=== PATIENT | female | born 1995 | race African-American/Black ===

== ENCOUNTER 2018-11-24 19:17 | Day surgery (SDC) | payer OTHER ==
[2018-11-24 19:55] VITALS: BP 110/64; TEMP 98.8; BMI 25.7
[2018-11-24 21:02] LABS: Bilirubin Negative (Negative); Blood, Urine Negative (Negative); Clarity CLEAR (Clear); Glucose, Urine (Dipstick) Negative (Negative); Leukocyte Negative (Negative); Nitrite Negative (Negative); Protein, Urine (Dipstick) Negative (Neg-Trace); Specific Gravity, Urine 1.009 (1.002-1.036)
--- NOTE | 2018-11-24 22:20 | SS ---
DATE OF ADMISSION: 11/24/2018 DATE OF DISCHARGE: 11/24/2018 LABOR AND DELIVERY TRIAGE NOTE REGULAR PHYSICIAN: Siena Watts MD. EVALUATING PHYSICIAN: Murtaza Hinson MD. CHIEF COMPLAINT: Lower abdominal pain noticed while working today. HISTORY OF PRESENT ILLNESS: Ms. Ríos is a 23-year-old black, G2, P1-0-0-1 with an estimated date of confinement of 12/27/2018, who presents complaining of diffuse lower abdominal discomfort with pulling that she says extends into her groin and hips. She denies vaginal bleeding or ruptured membranes. She reports active movement. Her care has been with Dr. Siena Watts and has been without complications. PAST OBSTETRICAL HISTORY: One vaginal delivery of a 7-pound 11-ounce infant. PAST MEDICAL HISTORY: None. PAST SURGICAL HISTORY: Appendectomy. CURRENT MEDICATIONS: 1. vitamins. 2. Iron. ALLERGIES: NO KNOWN ALLERGIES. SOCIAL HISTORY: Denies tobacco, alcohol, or drug use. FAMILY HISTORY: Unremarkable. REVIEW OF SYSTEMS: Denies nausea, vomiting, fever, chills, ruptured membranes, or vaginal bleeding. PHYSICAL EXAMINATION: VITAL SIGNS: Stable. She is afebrile in triage. GENERAL: She is pleasant and in no acute distress. ABDOMEN: Soft, nontender, and gravid. PELVIC: Deferred. heart tones are stable and are reassuring. There are no decelerations. No uterine contractions are seen. LABORATORY DATA: Urinalysis shows specific gravity of 1.009 with negative leukocytes, negative nitrites, negative protein, negative glucose, and negative ketones. ASSESSMENT: 1. 35-1/2 week uterine . 2. Suspect round ligament pain. PLAN: The nature round ligament pain was discussed with her in detail. She was told to use Tylenol at home. Complete labor precautions were given. She states that she has a followup appointment with Dr. Watts next week. Job ID: [id number]
== END 2018-11-24 21:45 | disposition home or self-care (01) ==
LOC: L&D/OP 19:17
PROVIDERS: ATTEND Obstetrics & Gynecology
DX: O99.89 Other specified diseases and conditions complicating pregnancy, childbirth and the puerperium (principal); R10.30 Lower abdominal pain, unspecified; Z3A.35 35 weeks gestation of pregnancy; Z90.49 Acquired absence of other specified parts of digestive tract
CPT/HCPCS: 81003; 99283

== ENCOUNTER 2018-12-20 00:05 | Inpatient (IN) | payer OTHER ==
[~2018-12-20 00:05] MED LIST: Butorphanol Tartrate 1 MG/ML VIAL SLOW IVP PRN; Docusate 100 MG CAP PO PRN; HYDROcodone/Acetaminophen 5/325 mg Tablet PO PRN; Ibuprofen 800 MG TAB PO PRN; Lidocaine 1% (PF) 30 ML VIAL SC PRN; NS / Oxytocin 40 units/1000ml 1,000 ML IV PRN; NS w/ Oxytocin 10 units 500 ML IV SCH; Ondansetron PF 4 MG/2 ML Vial IVP PRN; Promethazine HCl 25 MG/ML VIAL IM PRN
[2018-12-20 06:17] VITALS: BMI 26.9
[2018-12-20 06:44] LABS: Hemoglobin 10.6 g/dL (12.0-16.0); Mean Corpuscular HGB CONC 33.1 g/dL (32.0-36.0); Mean Corpuscular Hemoglobin 31.5 pg (27.0-31.0); Mean Corpuscular Volume 95.1 fL (78.0-98.0); Mean Platelet Volume 7.2 fL (7.4-10.4); Platelet Count 311 thou/uL (130-400); RBC Distribution Width 15.2 % (11.5-14.5); Red Blood Cell (RBC) Count 3.36 mill/uL (4.20-5.40); White Blood Cell (WBC) Count 12.3 thou/uL (4.8-10.8)
[2018-12-20] MEDS: Lactated Ringer's 1,000 ML IV SCH ×2 (06:46→14:53)
[2018-12-20 07:28] LABS: HBSAg Index 0.26 S/CO (0-0.99); Hep B Surf Ag Non-Reactive S/CO (NonReactive); Syphilis Antibody Nonreactive (Nonreactive); Syphilis Antibody Index 0.03 S/CO (<1.00 Non-Reactive)
[2018-12-20] MEDS ORDERED: Bupivacaine/Epinephrine 0.25% 30 ML VIAL ONE (11:11)
[2018-12-20] MEDS ORDERED: Fentanyl 4 mcg/Bup 0.1% Cadd 100 ML ONE (14:12)
[2018-12-20] MEDS ORDERED: Lidocaine 1.5%/Epinephrine 1:200,000 5 ML AMPUL IJ ONE (14:12)
[2018-12-20] MEDS ORDERED: Eucerin (Mineral Oil/Petrolatum,White) 30 gm Jar TOP PRN (14:47)
[2018-12-20] MEDS ORDERED: ePHEDrine/0.9% NaCl/PF SYRINGE 50 mg/10 ml SLOW IVP PRN (14:47)
[2018-12-20] MEDS ORDERED: Ondansetron PF 4 MG/2 ML Vial IVP PRN ×2 (14:47→18:20)
[2018-12-20] MEDS ORDERED: diphenhydrAMINE 50 MG/ML VIAL IVP PRN (14:47)
[2018-12-20] MEDS ORDERED: Acetaminophen 325 MG TAB PO PRN (14:47)
[2018-12-20] MEDS ORDERED: Promethazine HCl 25 MG/ML VIAL IM PRN (14:47)
[2018-12-20] MEDS ORDERED: Lactated Ringer's 500 ML IV PRN (14:47)
[2018-12-20] MEDS ORDERED: Naloxone HCl 0.4 mg/ml Vial IVP PRN ×2 (14:47)
[2018-12-20] MEDS ORDERED: Fentanyl 4 mcg/Bupivacaine 0.1% Cassette 100 ML EPIDURAL SCH (15:00)
[2018-12-20] MEDS ORDERED: Communication Order-Pharmacy FS SCH (15:00)
[2018-12-20] MEDS ORDERED: Milk Of Magnesia 30 ML UDCUP PO PRN (18:20)
[2018-12-20] MEDS ORDERED: Benzocaine/Menthol 20-0.5% 60 ML CAN TOP PRN (18:20)
[2018-12-20] MEDS ORDERED: Adacel (T-DAP) 0.5 ML SYRINGE IM ONE (18:20)
[2018-12-20] MEDS ORDERED: HYDROcodone/Acetaminophen 5/325 mg Tablet PO PRN ×2 (18:20)
[2018-12-20] MEDS ORDERED: Lanolin Ointment 7 GM TUBE TOP PRN (18:20)
[2018-12-20] MEDS ORDERED: Bisacodyl 10 MG SUPP PR PRN (18:20)
[2018-12-20] MEDS ORDERED: NS / Oxytocin 40 units/1000ml 1,000 ML IV SCH (18:30)
[2018-12-21] MEDS: Lactated Ringer's 1,000 ML IV SCH (06:50)
[2018-12-21] MEDS: Ferrous Sulfate 325 MG TAB PO SCH ×2 (08:27→18:18)
[2018-12-21] MEDS: Ibuprofen 800 MG TAB PO SCH ×4 (08:58→21:51)
[2018-12-21] MEDS: Prenatal Vitamin 1 TAB PO SCH (08:58)
[2018-12-21] MEDS: Docusate Calcium (SURFAK) 240 MG CAP PO SCH ×3 (08:58→21:51)
[2018-12-22] MEDS: Ibuprofen 800 MG TAB PO SCH ×2 (06:20→14:02)
[2018-12-22 09:07] VITALS: BP 111/65; TEMP 98.1
[2018-12-22] MEDS: Ferrous Sulfate 325 MG TAB PO SCH (09:33)
[2018-12-22] MEDS: Prenatal Vitamin 1 TAB PO SCH (09:47)
[2018-12-22] MEDS: Docusate Calcium (SURFAK) 240 MG CAP PO SCH (09:47)
--- NOTE | 2018-12-22 21:36 | DN ---
DATE OF PROCEDURE: 12/20/2018 ADMITTING DIAGNOSES: 1. A 23-year-old female, G2, P1, at 39 weeks for induction of labor. 2. History of fourth degree laceration with last delivery. 3. Group B streptococcus negative. POSTOPERATIVE DIAGNOSES: 1. A 23-year-old female, G2, P1, at 39 weeks for induction of labor. 2. History of fourth degree laceration with last delivery. 3. Group B streptococcus negative. 4. Live-born female weighing 7 pounds 1 ounce with Apgars of 9 and 9 at 1 and 5 minutes respectively. 5. Revision of a band from her previous fourth degree repair with the last . ESTIMATED BLOOD LOSS: 50 mL. ANESTHESIA: Epidural. CLINICAL HISTORY: This patient is a 23-year-old female, G2, P1 , with a previous term vaginal delivery, who was seen at [facility] and followed throughout her without any complications other than late to care and an abnormal 1-hour Glucola with a normal 3-hour Glucola. The patient was also noted to be anemic toward the end of the . She was admitted the day of presentation for a Pitocin induction. She had a category 1 tracing and Pitocin was started. Her initial exam was 3 cm, 60% effaced, and -3 station. She had an amniotomy for clear fluid and continued to progress. She did request an epidural for maternal analgesia and progressed appropriately along the labor curve. At complete cervical dilation and +1 station, she began to push with good maternal effort. DESCRIPTION OF PROCEDURE: The patient was able to push the vertex to in the DANIEL position. The head was delivered and there was noted to be a nuchal cord, this was reduced at the perineum. The anterior shoulder was then delivered with the assistance of Phyllis maneuver. The posterior shoulder was then delivered and then the rest of the infant's body delivered spontaneously. The cord was doubly clamped and cut by the father of the baby and the was put on the maternal abdomen for continued stimulation and drying. The cord blood was obtained. A gentle fundal massage assisted the delivery of the placenta, which was intact with a three-vessel cord. Exploration afterwards noted no tears; however, it was noted from her previous fourth degree laceration that she had a band that went across the midline posterior fiorcet that caused an open loop. This band was corrected by cutting the two ends at the base of the introitus and releasing the middle tissue for the band. The areas were hemostatic afterwards and did not require suturing and the anesthesia used was the epidural anesthesia. The patient tolerated the procedure well and the excess tissue was discarded with the medical waste. The uterus was firm at the end of the procedure. The patient was cleansed and put into the recovery position to continue attention to her live-born baby again. It was a little female, weighing 7 pounds 1 ounce with Apgars of 9 and 9 at 1 and 5 minutes respectively. There were no other issues surrounding this delivery. Job ID: [id number] [facility]
== END 2018-12-22 16:20 | disposition home or self-care (01) | DRG 807 ==
LOC: L&D 05:47 → 3SW 21:20
PROVIDERS: ADMIT Obstetrics & Gynecology; ATTEND Obstetrics & Gynecology
PROC: 10E0XZZ Delivery of Products of Conception, External Approach (ICD-10-PCS; principal; 2018-12-20)
PROC: 10907ZC Drainage of Amniotic Fluid, Therapeutic from Products of Conception, Via Natural or Artificial Opening (ICD-10-PCS; 2018-12-20)
PROC: 10H07YZ Insertion of Other Device into Products of Conception, Via Natural or Artificial Opening (ICD-10-PCS; 2018-12-20)
PROC: 3E033VJ Introduction of Other Hormone into Peripheral Vein, Percutaneous Approach (ICD-10-PCS; 2018-12-20)
DX: O99.02 Anemia complicating childbirth (principal); Z37.0 Single live birth; D64.9 Anemia, unspecified; Z3A.39 39 weeks gestation of pregnancy; O34.73 Maternal care for abnormality of vulva and perineum, third trimester; O69.1XX0 Labor and delivery complicated by cord around neck, with compression, not applicable or unspecified
CPT/HCPCS: 36415; 85027; 86780; 86850; 86900; 86901; 87340; 90715; J3490

== ENCOUNTER 2020-10-01 10:22 | Emergency (ER) | payer MEDICAID ==
[2020-10-01 11:42] LABS: Bilirubin Negative (Negative); Blood, Urine Negative (Negative); Clarity Clear (Clear); Glucose, Urine (Dipstick) Normal (Negative); Ketone, Urine 10 mg/dL (Negative); Leukocyte Negative Leu/uL (Negative); Nitrite Negative (Negative); Protein, Urine (Dipstick) 20 mg/dL (Neg-Trace); Specific Gravity, Urine 1.022 (1.002-1.036); Urobilinogen Normal mg/dL (Less than 2); pH, Urine 6.5 (5.0-9.0)
[2020-10-01 11:44] LABS: Pregnancy Test - Urine (BHCG) POSITIVE (Negative); Pregu Control Background? CLEAR/WHITE (CLR/WHITE); Pregu Control Bar Appear? YES (CONTROL BAR); Specific Gravity 1.022 (1.002-1.036)
[2020-10-01 11:55] LABS: Amphetamine Not Detected (NotDetected); Barbiturates Screen Not Detected (NotDetected); Benzodiazepine Screen Not Detected (NotDetected); Cocaine Metabolite Screen Not Detected (NotDetected); Medtox Control Line Valid? VALID (VALID); Medtox Reader # READER 4; Methadone Not Detected (NotDetected); Methamphetamine Not Detected (NotDetected); Opiate Screen Not Detected (NotDetected); Oxycodone Screen Not Detected (NotDetected); Phencyclidine (PCP) Not Detected (NotDetected); THC/Cannabinoid Screen Detected (NotDetected); Tricyclic Screen Not Detected (NotDetected)
[2020-10-01 12:16] LABS: #Basophils 0.1 thou/uL (0.0-0.2); #Eosinphils 0.2 thou/uL (0.0-0.7); #Lymphocytes 3.1 thou/uL (1.20-3.40); #Monocytes 0.6 thou/uL (0.11-0.59); #Neutrophils 10.2 thou/uL (1.40-6.50); %Basophils 0.6 % (0.0-1.0); %Eosinophils 1.1 % (0.0-10.0); %Lymphocytes 21.9 % (21.0-51.0); %Monocytes 4.5 % (0.0-10.0); %Neutrophils 71.9 % (42.0-75.0); Hemoglobin 12.8 g/dL (12.0-16.0); Mean Corpuscular HGB CONC 33.8 g/dL (32.0-36.0); Mean Corpuscular Hemoglobin 38.1 pg (27.0-31.0); Mean Corpuscular Volume 97.8 fL (78.0-98.0); Mean Platelet Volume 7.1 fL (7.4-10.4); Platelet Count 733 thou/uL (130-400); RBC Distribution Width 12.7 % (11.5-14.5); Red Blood Cell (RBC) Count 3.37 mill/uL (4.20-5.40); White Blood Cell (WBC) Count 14.2 thou/uL (4.8-10.8)
[2020-10-01 12:19] LABS: Acetaminophen Less than 6.0 mcg/mL (10.0-30.0); Alcohol Less than 10 mg/dL (Less than 10); Salicylate Less than 8.0 mg/dL (15.0-30.0)
[2020-10-01 12:35] LABS: ALT (SGPT) 7 U/L (8-55); AST (SGOT) 23 U/L (5-34); Albumin 3.9 g/dL (3.5-5.0); Alkaline Phosphatase 92 U/L (40-110); Anion Gap 15 mmol/L (10-20); BUN (Urea Nitrogen) Less than 4 mg/dL (7.0-18.7); Bilirubin, Total 0.3 mg/dL (0.2-1.2); Calc. Creatinine Clearance 0 mL/min (70-130); Calcium 8.1 mg/dL (7.8-10.44); Carbon Dioxide 16 mmol/L (22-29); Chloride 106 mmol/L (98-107); Globulin 3.9 g/dL (2.4-3.5); Glucose 63 mg/dL (70-105); Potassium 5.3 mmol/L (3.5-5.1); Protein, Total 7.8 g/dL (6.0-8.3); Sodium 132 mmol/L (136-145)
[2020-10-01 23:41] LABS: SARS-CoV-2 NAA Rapid Test Not Detected (NotDetected)
== END 2020-10-02 00:59 ==
LOC: ERS 10:22
DX: O99.342 Other mental disorders complicating pregnancy, second trimester (principal); F43.20 Adjustment disorder, unspecified; F32.9 Major depressive disorder, single episode, unspecified; F41.9 Anxiety disorder, unspecified; O99.282 Endocrine, nutritional and metabolic diseases complicating pregnancy, second trimester; E87.5 Hyperkalemia; Z3A.25 25 weeks gestation of pregnancy; Z20.828 Contact with and (suspected) exposure to other viral communicable diseases
CPT/HCPCS: 36415; 80053; 80306; 80307; 81003; 81025; 84443; 85025; 99285; U0002